=== PATIENT | male | born 1945 | race Caucasian/White ===

== ENCOUNTER 2019-06-14 23:46 | Inpatient (IN) | payer MEDICARE ==
[2019-06-14 23:57] LABS: Glucose,Whole Blood 171 mg/dL (75-99)
[2019-06-15] MEDS ORDERED: SODIUM CHLORIDE 0.9% 1,000 ML IV STA (00:07)
[2019-06-15 00:26] LABS: Basophils # (A) 0.1 k/uL (0-0.2); Basophils % (A) 1 %; Eosinophils # (A) 0.1 k/uL (0-0.7); Eosinophils % (A) 2 %; HCT 41.3 % (39.0-53.0); HGB 14.2 gm/dL (13.0-17.5); Lymphocytes # (A) 2.3 k/uL (1.0-4.8); Lymphocytes % (A) 32 %; MCH 31.5 pg (25.0-35.0); MCHC 34.3 g/dL (31.0-37.0); MCV 91.8 fL (80.0-100.0); Mean Platelet Volume 7.7; Monocytes # (A) 0.4 k/uL (0-1.0); Monocytes % (A) 6 %; Neutrophils # (A) 4.2 k/uL (1.3-7.7); Neutrophils % (A) 57 %; Platelet Count 285 k/uL (150-450); RDW 12.2 % (11.5-15.5); WBC 7.2 k/uL (3.8-10.6)
--- NOTE | 2019-06-15 00:39 | CT ---
EXAMINATION TYPE: CT brain wo con for TPA DATE OF EXAM: 06/15/2019 COMPARISON: None HISTORY: stroke CT DLP: 1098.40 mGycm Automated exposure control for dose reduction was used. Multiple axial sections were obtained of the brain without contrast. Ventricles and sulci appear normal for age. There is no mass effect nor midline shift. There is no si gn of intracranial hemorrhage. Calvarium is intact. There is no evidence of cerebral edema. IMPRESSION: Negative CT scan of the brain.
--- NOTE | 2019-06-15 00:40 | XR ---
EXAMINATION TYPE: XR chest 2V DATE OF EXAM: 06/15/2019 COMPARISON: 01/29/2016 HISTORY: Altered mental status. TECHNIQUE: FINDINGS: Heart is normal. Lungs are clear. There is no heart failure. There is no pleural effusion. Thoracic aorta shows mild atheromatous change. There are chest leads. IMPRESSION: No active cardiopulmonary disease. Normal heart. No change.
[2019-06-15 00:42] LABS: ALT 36 U/L (4-49); African American GFR (CKD) >90 (>60 ml/min/1.73 sqM); Albumin 4.6 g/dL (3.5-5.0); Anion Gap 8 mmol/L; Blood Urea Nitrogen 18 mg/dL (9-20); Calcium 9.9 mg/dL (8.4-10.2); Carbon Dioxide 27 mmol/L (22-30); Chloride 101 mmol/L (98-107); Glucose 137 mg/dL (74-99); Non-African American GFR(CKD) >90 (>60 ml/min/1.73 sqM); Sodium 136 mmol/L (137-145); Total Bilirubin 0.7 mg/dL (0.2-1.3); Total Protein 7.6 g/dL (6.3-8.2)
[2019-06-15 00:53] LABS: Potassium 4.7 mmol/L (3.5-5.1)
[2019-06-15 00:54] LABS: AST 39 U/L (17-59); Alkaline Phosphatase 65 U/L (38-126)
[2019-06-15 00:55] LABS: Partial Thromboplastin Time 22.1 sec (22.0-30.0); Prothrombin Time 10.1 sec (9.0-12.0)
[2019-06-15 01:45] LABS: Appearance,Urine Clear (Clear); Bilirubin,Urine Negative (Negative); Blood,Urine Negative (Negative); Color,Urine Light Yellow; Glucose,Urine (UA) Negative (Negative); Ketones,Urine Negative (Negative); Leukocyte Esterase,Urine Negative (Negative); Nitrite,Urine Negative (Negative); PH, Urine 6.5 (5.0-8.0); Protein,Urine Negative (Negative); Specific Gravity,Urine 1.006 (1.001-1.035); Urobilinogen,Urine <2.0 mg/dL (<2.0)
[2019-06-15] MEDS ORDERED: ASPIRIN 81 MG PO STA (02:17)
[2019-06-15] MEDS ORDERED: NALOXONE 0.4 MG/ML 1 ML VIAL IV PRN (02:27)
--- NOTE | 2019-06-15 02:38 | ED ---
General Adult HPI - General Chief complaint: Neuro Symptoms/Deficit Stated complaint: Dizzy,CVA Symptoms Time Seen by Provider: 06/15/19 00:07 Source: patient, family Mode of arrival: wheelchair Limitations: altered mental status - History of Present Illness Initial comments: Prasanna is a pleasant 74-year-old woman who is brought in by his and son f or evaluation of altered mental status, odd speech and intermittent possible left-sided facial droop though seems resolved at arrival and possible slurred speech versus mumbling speech. Family reports that the patient is usually very sharp mentally, and this evening he seems very confused. Upon arrival he stated that it was 2012 and he is speaking about events that had not happened in a number of years. He began talking about being stung by bees and when asked where this happened patient reported that happened in April. Family has no clue what the patient is talking about. Family felt like possibly the patient had a facial droop though that had resolved. Also patient has been having moments of complete clarity where he seems awake alert aware of the year time uncertain barnes at the hospital. He's not been sick. - Related Data Home Medications Medication Instructions Recorded Confirmed Aspirin 81 mg PO DAILY 01/29/16 06/15/19 Atorvastatin [Lipitor] 20 mg PO DAILY 01/29/16 06/15/19 Lisinopril [Zestril] 20 mg PO DAILY 01/29/16 06/15/19 amLODIPine [Norvasc] 5 mg PO DAILY 01/29/16 06/15/19 Previous Rx's Medication Instructions Recorded Ibuprofen [Motrin] 800 mg PO Q6HR PRN #20 tab 01/29/16 Allergies Allergy/AdvReac Type Severity Reaction Status Date / Time chlordiazepoxide Allergy Rash/Hives Verified 06/15/19 00:05 [From Librax (with clidinium)] clidinium bromide Allergy Rash/Hives Verified 06/15/19 00:05 [From Librax (with clidinium)] Review of Systems ROS Statement: Those systems with pertinent positive or pertinent negative responses have been documented in the HPI. ROS Other: All systems not noted in ROS Statement are negative. Past Medical History Past Medical History: Hyperlipidemia, Hypertension Additional Past Medical History / Comment(s): heart murmur History of Any Multi-Drug Resistant Organisms: None Reported Past Surgical History: No Surgical Hx Reported Additional Past Surgical History / Comment(s): eye implants Past Psychological History: No Psychological Hx Reported Smoking Status: Never smoker Past Alcohol Use History: Occasional Past Drug Use History: None Reported - Past Family History Mother Family Medical History: No Reported History General Exam - General Exam Comments Initial Comments: Physical Exam GENERAL: Patient is well-developed and well-nourished. Patient is nontoxic and well- hydrated and is in no distress. HENT: Normocephalic, Atraumatic. EYES: PERRL, EOMI PULMONARY: Unlabored respirations. No audible rales rhonchi or wheezing was noted. CARDIOVASCULAR: There is a regular rate and rhythm without any murmurs gallops or rubs. ABDOMEN: Soft and nontender with normal bowel sounds. SKIN: Skin is clear with no lesions or rashes and otherwise unremarkable. : Deferred NEUROLOGIC: Patient is alert and oriented to person and place, occasionally oriented to year occasionally confused Radial nerves II through XII is intact No obvious facial droop, no slurred speech Moving all extremities spontaneously Standing without difficulty, no altered coordination No weakness in upper or lower extremities, no droop MUSCULOSKELETAL: Normal extremities with adequate strength and full range of motion. No lower extremity swelling or edema. No calf tenderness. PSYCHIATRIC: Normal psychiatric evaluation. Limitations: altered mental status Course Vital Signs 06/15/19 06/15/19 06/15/19 00:01 00:35 01:45 Temperature 97.9 F Pulse Rate 47 L 46 L 46 L Pulse Rate [ Right] Respiratory 18 17 18 Rate Blood Pressure 178/87 174/69 170/71 Blood Pressure [Right Arm] O2 Sat by Pulse 99 100 100 Oximetry 06/15/19 06/15/19 03:00 03:34 Temperature 98.7 F 97.1 F L Pulse Rate 52 L Pulse Rate [ 48 L Right] Respiratory 18 16 Rate Blood Pressure 165/72 Blood Pressure 179/78 [Right Arm] O2 Sat by Pulse 100 95 Oximetry EKG Findings - EKG Comments: EKG Findings:: EKG was obtained due to complaint of possible neuro deficits, EKG was obtained at 2356, rate is 50 rhythm is narrow complex regular rhythm with a P-wave before each QRS consistent with sinus bradycardia, there is a prolonged NV at 212, QRS is 94, QTC is [address] elevations or depressions there is no evidence of acute ischemia or infarction. Medical Decision Making - Medical Decision Making The patient was seen and evaluated, history is obtained from the patient and family at bedside Patient no acute complaints however family is concerned about his confusion. Reports that he's been speaking nonsense. Only does report they feel that he has intermittent left-sided facial droop and intermittent slurred speech but that they have resolved on arrival Labs and imaging were obtained and imaging reveals no acute pathology, labs with no significant abnormalities no infection noted to the cause of altered mental status. Upon my reevaluation the patient is now awake alert and oriented. However family can reports he's had these periods of telling stories being confused about his location. This is very atypical for the patient. At this time we'll plan to admit the patient for evaluation by neurology. - Lab Data Result diagrams: 06/15/19 00:06 06/15/19 00:06 Lab Results 06/14/19 06/15/19 06/15/19 Range/Units 23:56 00:06 00:06 WBC 7.2 (3.8-10.6) k/uL RBC 4.50 (4.30-5.90) m/uL Hgb 14.2 (13.0-17.5) gm/dL Hct 41.3 (39.0-53.0) % MCV 91.8 (80.0-100.0) fL MCH 31.5 (25.0-35.0) pg MCHC 34.3 (31.0-37.0) g/dL RDW 12.2 (11.5-15.5) % Plt Count 285 (150-450) k/uL Neutrophils % 57 % Lymphocytes % 32 % Monocytes % 6 % Eosinophils % 2 % Basophils % 1 % Neutrophils # 4.2 (1.3-7.7) k/uL Lymphocytes # 2.3 (1.0-4.8) k/uL Monocytes # 0.4 (0-1.0) k/uL Eosinophils # 0.1 (0-0.7) k/uL Basophils # 0.1 (0-0.2) k/uL PT (9.0-12.0) sec INR (<1.2) APTT (22.0-30.0) sec Sodium 136 L (137-145) mmol/L Potassium 4.7 (3.5-5.1) mmol/L Chloride 101 (98-107) mmol/L Carbon Dioxide 27 (22-30) mmol/L Anion Gap 8 mmol/L BUN 18 (9-20) mg/dL Creatinine 0.70 (0.66-1.25) mg/dL Est GFR (CKD-EPI)AfAm >90 (>60 ml/min/1.73 sqM) Est GFR (CKD-EPI)NonAf >90 (>60 ml/min/1.73 sqM) Glucose 137 H (74-99) mg/dL POC Glucose (mg/dL) 171 H (75-99) mg/dL POC Glu Analysis Mgr ID Keren Donohue Calcium 9.9 (8.4-10.2) mg/dL Total Bilirubin 0.7 (0.2-1.3) mg/dL AST 39 (17-59) U/L ALT 36 (4-49) U/L Alkaline Phosphatase 65 (38-126) U/L Troponin I (0.000-0.034) ng/mL Total Protein 7.6 (6.3-8.2) g/dL Albumin 4.6 (3.5-5.0) g/dL Urine Color Urine Appearance (Clear) Urine pH (5.0-8.0) Ur Specific [place] (1.001-1.035) Urine Protein (Negative) Urine Glucose (UA) (Negative) Urine Ketones (Negative) Urine Blood (Negative) Urine Nitrite (Negative) Urine Bilirubin (Negative) Urine Urobilinogen (<2.0) mg/dL Ur Leukocyte Esterase (Negative) 06/15/19 06/15/19 06/15/19 Range/Units 00:06 00:06 01:21 WBC (3.8-10.6) k/uL RBC (4.30-5.90) m/uL Hgb (13.0-17.5) gm/dL Hct (39.0-53.0) % MCV (80.0-100.0) fL MCH (25.0-35.0) pg MCHC (31.0-37.0) g/dL RDW (11.5-15.5) % Plt Count (150-450) k/uL Neutrophils % % Lymphocytes % % Monocytes % % Eosinophils % % Basophils % % Neutrophils # (1.3-7.7) k/uL Lymphocytes # (1.0-4.8) k/uL Monocytes # (0-1.0) k/uL Eosinophils # (0-0.7) k/uL Basophils # (0-0.2) k/uL PT 10.1 (9.0-12.0) sec INR 1.0 (<1.2) APTT 22.1 (22.0-30.0) sec Sodium (137-145) mmol/L Potassium (3.5-5.1) mmol/L Chloride (98-107) mmol/L Carbon Dioxide (22-30) mmol/L Anion Gap mmol/L BUN (9-20) mg/dL Creatinine (0.66-1.25) mg/dL Est GFR (CKD-EPI)AfAm (>60 ml/min/1.73 sqM) Est GFR (CKD-EPI)NonAf (>60 ml/min/1.73 sqM) Glucose (74-99) mg/dL POC Glucose (mg/dL) (75-99) mg/dL POC Glu Analysis Mgr ID Calcium (8.4-10.2) mg/dL Total Bilirubin (0.2-1.3) mg/dL AST (17-59) U/L ALT (4-49) U/L Alkaline Phosphatase (38-126) U/L Troponin I 0.016 (0.000-0.034) ng/mL Total Protein (6.3-8.2) g/dL Albumin (3.5-5.0) g/dL Urine Color Light Yellow Urine Appearance Clear (Clear) Urine pH 6.5 (5.0-8.0) Ur Specific [place] 1.006 (1.001-1.035) Urine Protein Negative (Negative) Urine Glucose (UA) Negative (Negative) Urine Ketones Negative (Negative) Urine Blood Negative (Negative) Urine Nitrite Negative (Negative) Urine Bilirubin Negative (Negative) Urine Urobilinogen <2.0 (<2.0) mg/dL Ur Leukocyte Esterase Negative (Negative) Disposition Clinical Impression: Altered mental status Disposition: ADMITTED IP TO THIS [facility] Condition: Stable Is patient prescribed a controlled substance at d/c from ED?: No
[2019-06-15 03:00] LABS: Carbon Monoxide 1.6 % (<10.0); VBG PH 7.33 (7.31-7.41)
[2019-06-15] MEDS ORDERED: ZOLPIDEM 5 MG TAB PO PRN (13:29)
--- NOTE | 2019-06-15 14:56 | P.CNNES ---
History of Present Illness Consult date: 06/15/19 Reason for Consult: slurred speech Chief complaint: confusion and slurred speech History of Present Illness: Mr. Prasanna Pop is a 74-year-old male who is seen in neurologic consultation on June 15, 2019 via teleneurology. The patient himself was unable to tell me why he is in the hospital. He tells me "my count wasn't good". The patient's son is at the bedside and he reports that his father was confused and slurring his speech, yesterday. The patient's son wondered about carbon monoxide poisoning because apparently one of the pets at home was sick. The patient lives with his . He usually is mentally sharp. The patient reportedly had no difficulty with balance or headache. He did complain of feeling as if his eyes were sore. There is no definitive loss of vision. Per the patient's son, the patient had slurred speech and drooping of his right lower lip. The patient denies difficulty swallowing. There was no chest pain or shortness of breath. The patient has no history of similar events. Review of Systems Negative except for that noted in the history of chief complaint Past Medical History Past Medical History: Hyperlipidemia, Hypertension Additional Past Medical History / Comment(s): heart murmur History of Any Multi-Drug Resistant Organisms: None Reported Past Surgical History: No Surgical Hx Reported Additional Past Surgical History / Comment(s): eye implants Past Anesthesia/Blood Transfusion Reactions: No Reported Reaction Past Psychological History: No Psychological Hx Reported Smoking Status: Never smoker Past Alcohol Use History: Occasional Past Drug Use History: None Reported - Past Family History Mother Family Medical History: No Reported History Medications and Allergies Home Medications Medication Instructions Recorded Confirmed Type Aspirin 81 mg PO DAILY 01/29/16 06/15/19 History Atorvastatin [Lipitor] 20 mg PO HS 01/29/16 06/15/19 History Ibuprofen [Motrin] 800 mg PO Q6HR PRN #20 tab 01/29/16 06/15/19 Rx amLODIPine [Norvasc] 5 mg PO HS 01/29/16 06/15/19 History Lansoprazole 30 mg PO DAILY 06/15/19 06/15/19 History Lisinopril [Zestril] 20 mg PO DAILY 06/15/19 06/15/19 History Prednisolone Acetate/Pf 1 drop BOTH EYES COSTA 06/15/19 06/15/19 History [Prednisolone Acet 1% Eye Drop] Zolpidem [Ambien] 5 mg PO HS PRN 06/15/19 06/15/19 History Allergies Allergy/AdvReac Type Severity Reaction Status Date / Time chlordiazepoxide Allergy Rash/Hives Verified 06/15/19 09:11 [From Librax (with clidinium)] clidinium bromide Allergy Rash/Hives Verified 06/15/19 09:11 [From Librax (with clidinium)] Physical Examination - Vital Signs Vital Signs: Vital Signs Temp Pulse Pulse Resp BP BP Pulse Ox 06/15/19 11:41 97.3 F L 48 L 17 140/65 97 06/15/19 03:34 97.1 F L 48 L 16 179/78 95 06/15/19 03:00 98.7 F 52 L 18 165/72 100 06/15/19 01:45 46 L 18 170/71 100 06/15/19 00:35 46 L 17 174/69 100 06/15/19 00:01 97.9 F 47 L 18 178/87 99 Intake and Output 06/14/19 06/15/19 06/15/19 22:59 06:59 14:59 Other: Voiding Method Toilet Urinal # Voids 1 Weight 78.018 kg Gen.: The patient is reclining in the bed. He is well-nourished, well-developed and in no acute distress. HEENT: Head is atraumatic, normocephalic. Fundus not visualized. There is no scleral icterus. This membranes are moist. Heart: Regular rate and rhythm Extremities: Without edema Neurological examination Mental status: Patient is awake, alert and oriented 3. He is unable to report any recent events. His speech is slightly slurred. Cranial nerves: Pupils are equal, round and reactive to light. Visual grissom are full to confrontation. Extraocular muscles are intact. Facial sensation is intact. There is flattening of the right nasal labial fold. Hearing is grossly intact. Uvula and palate are midline. Shoulder shrug is symmetric. Tongue protrudes midline. Motor: Strength is 5/5 throughout Sensation: Grossly intact to light touch Coordination: Finger to nose testing is intact. There is a tremor of the bilateral upper extremities which is present with movement. Deep tendon reflexes: 2+/4+ in the upper extremities. 2-3+/4+ at the knees. Gait: Not assessed Results - Laboratory Findings CBC and BMP: 06/15/19 00:06 06/15/19 00:06 Abnormal Lab Findings: Abnormal Labs 06/14/19 06/15/19 06/15/19 23:56 00:06 02:49 VBG pCO2 58 H VBG HCO3 29 H Sodium 136 L Glucose 137 H POC Glucose (mg/dL) 171 H - Diagnostic Findings Comments: CT brain images are reviewed. There is a possible area of decreased attenuation in the left MCA territory. Assessment and Plan Assessment: Impressions: 1. Possible left lacunar infarct, in the middle cerebral artery territory 2. Bradycardia Plan: 1. MRI of brain 2. Consider cardiology consultation for bradycardia and possible pacemaker 3. Speech therapy evaluation regarding slurred speech and confusion Time with Patient: Greater than 30 (spent 45 minutes with patient)
--- NOTE | 2019-06-15 16:00 | MR ---
EXAMINATION TYPE: MR brain wo con DATE OF EXAM: 06/15/2019 COMPARISON: None HISTORY: AMS, left lunar infarct Multiplanar multiecho imaging of the brain was performed without contrast. On the diffusion images there is 15 x 10 mm focus of increased signal in the anterior left thalamus. This is consistent with acute infarct. There is no mass effect nor midline shift. There is no sign of intracranial hemorrhage. Ventricles are prominent. There is mild thinning of the corpus callosum. Se lla turcica appears normal. There is mild cerebral cortical atrophy. The brainstem appears normal. On the T2 and FLAIR images there are scattered white matter foci of increased signal at the baumann-whit e matter junction of both cerebral hemispheres. These measure up to 4 mm. Total number is approximate ly 10. I see no evidence of cortical infarct. IMPRESSION: Acute infarct anterior left thalamus. Scattered small white matter high signal foci probably related to some chronic microvascular ischemia . No evidence of cortical infarct.
[2019-06-15 16:58] LABS: Glucose,Whole Blood 136 mg/dL (75-99)
[2019-06-15 17:14] VITALS: RESP 16
[2019-06-15] MEDS ORDERED: RX INFO: IV CONTRAST WAS GIVEN 1 EACH MISC MISCELLANE PRN (17:18)
--- NOTE | 2019-06-15 17:38 | CT ---
EXAMINATION TYPE: CT brain wo con for TPA DATE OF EXAM: 06/15/2019 COMPARISON: Today HISTORY: Altered mental status. CT DLP: 1042.7 mGycm Automated exposure control for dose reduction was used. Multiple axial sections were obtained of the brain without contrast. There is poorly marginated 2 cm area of hypodensity involving the anterior left thalamus consistent w ith an acute infarct. There is no midline shift. There is no sign of intracranial hemorrhage. The alanis varium is intact. IMPRESSION: Thalamic left side anterior hypodensity consistent with an acute infarct that is a radiographic arriaga e compared to exam this morning. No hemorrhage.
--- NOTE | 2019-06-15 17:51 | P.HPIM ---
History of Present Illness H&P Date: 06/15/19 Presenting complaint: Confused Speech History of presenting complaint: This is a pleasant 74-year-old gentleman of Dr. Chino. History is obtained by the at the bedside. Has a history of hypertension, hyperlipidemia. In good health. Patient had gone up as his history for breakfast and feeling well. He threw up at the restaurant. A moment to sleep. Woke up in the evening around 4:00 his speech was all gibberish. Also mouth was drooping to one side. Assessment and decided to call family and then decided to come down to the ER. Accordingly are closed with diet. A computed tomography scan of the brain did not show an acute stroke. She was admitted for the same. We have r obotic coverage of neurology and ordered a MRI earlier today. Came to see the patient .: For the MRI. Later MRI results come back showing infarct in the left thalamus. Patient is already on aspirin and Lipitor. Patient's speech is shown some improvement.. No double vision or headache. No trouble walking. No trouble eating. Review of systems: GEN.: None EYES: None HEENT: None NECK: None RESPIRATORY: None CARDIOVASCULAR: None GASTROINTESTINAL: None GENITOURINARY: None MUSCULOSKELETAL: None LYMPHATICS: None HEMATOLOGICAL: None PSYCHIATRY: None NEUROLOGICAL: As above Past medical history to include: Hyperlipidemia, hypertension, Social history: . Does not smoke. Alcohol occasionally. Is at [facility] Family history: Reviewed, noncontributory to presentation Physical examination: VITAL SIGNS: 97.9, 47, 18, 178/87, 99% room air GENERAL: Average built, laying, comfortable. EYES: Pupils equal. Conjunctiva normal. HEENT: External appearance of nose and ears normal, oral cavity grossly normal. NECK: JVD not raised; masses not palpable. HEART: First and second heart sounds are normal; no edema. LUNGS: Respiratory rate normal; clear to auscultation. ABDOMEN: Soft, nontender, liver spleen not palpable, no masses palpable. PSYCH: [Immunosuppression questions. NEUROLOGICAL: Mild facial limits asymmetry with slight weakness on the left side of the face, speech is altered t. LYMPHATICS: No lymph nodes palpable in the axilla and neck INVESTIGATIONS, reviewed in the clinical context:: White count 7.2 hemoglobin 14.2 platelets 25 potassium 4.7 bun 18 [address] 0[address] brain without contrast for TPA negative computed tomography scan brain MRI brain-acute infarct anterior left thalamus Assessment: -Acute anterior thalamus infarct, and a right-handed patient, likely ischemic -Essential hypertension, elevated in the acute phase of a stroke -Hyperlipidemia -Acute dysarthria, secondary to acute stroke Plan: Nephrology was consulted earlier. Seen by them. Patient oriented aspirin and Lipitor. Increase the dose of the latter by 80 mg. Also add Plavix 75 mg a day for 30 days. The patient be consulted. No trouble swallowing. Care was discussed in detail with the patient and at the bedside and questions ans wered. Lovenox for DVT prophylaxis. Past Medical History Past Medical History: Hyperlipidemia, Hypertension Additional Past Medical History / Comment(s): heart murmur History of Any Multi-Drug Resistant Organisms: None Reported Past Surgical History: No Surgical Hx Reported Additional Past Surgical History / Comment(s): eye implants Past Anesthesia/Blood Transfusion Reactions: No Reported Reaction Past Psychological History: No Psychological Hx Reported Smoking Status: Never smoker Past Alcohol Use History: Occasional Past Drug Use History: None Reported - Past Family History Mother Family Medical History: No Reported History Medications and Allergies Home Medications Medication Instructions Recorded Confirmed Type Aspirin 81 mg PO DAILY 01/29/16 06/15/19 History Atorvastatin [Lipitor] 20 mg PO HS 01/29/16 06/15/19 History Ibuprofen [Motrin] 800 mg PO Q6HR PRN #20 tab 01/29/16 06/15/19 Rx amLODIPine [Norvasc] 5 mg PO HS 01/29/16 06/15/19 History Lansoprazole 30 mg PO DAILY 06/15/19 06/15/19 History Lisinopril [Zestril] 20 mg PO DAILY 06/15/19 06/15/19 History Prednisolone Acetate/Pf 1 drop BOTH EYES COSTA 06/15/19 06/15/19 History [Prednisolone Acet 1% Eye Drop] Zolpidem [Ambien] 5 mg PO HS PRN 06/15/19 06/15/19 History Allergies Allergy/AdvReac Type Severity Reaction Status Date / Time chlordiazepoxide Allergy Rash/Hives Verified 06/15/19 09:11 [From Librax (with clidinium)] clidinium bromide Allergy Rash/Hives Verified 06/15/19 09:11 [From Librax (with clidinium)] Physical Exam Vitals: Vital Signs Temp Pulse Pulse Resp BP BP Pulse Ox 06/15/19 11:41 97.3 F L 48 L 17 140/65 97 06/15/19 03:34 97.1 F L 48 L 16 179/78 95 06/15/19 03:00 98.7 F 52 L 18 165/72 100 06/15/19 01:45 46 L 18 170/71 100 06/15/19 00:35 46 L 17 174/69 100 06/15/19 00:01 97.9 F 47 L 18 178/87 99 Intake and Output 06/14/19 06/15/19 06/15/19 22:59 06:59 14:59 Other: Voiding Method Toilet Urinal # Voids 1 Weight 78.018 kg Results CBC & Chem 7: 06/15/19 00:06 06/15/19 00:06 Labs: Abnormal Lab Results - Last 24 Hours (Table) 06/14/19 06/15/19 06/15/19 Range/Units 23:56 00:06 02:49 VBG pCO2 58 H (37-51) mmHg VBG HCO3 29 H (24-28) mmol/L Sodium 136 L (137-145) mmol/L Glucose 137 H (74-99) mg/dL POC Glucose (mg/dL) 171 H (75-99) mg/dL Thrombosis Risk Factor Assmnt - Choose All That Apply Any of the Below Risk Factors Present?: Yes Each Factor Represents 1 point: Obesity (BMI >25) Each Risk Factor Represents 3 Points: Age 75 years or older Thrombosis Risk Factor Assessment Total Risk Factor Score: 4 Thrombosis Risk Factor Assessment Level: Moderate Risk
[2019-06-15 18:11] LABS: Cholesterol 174 mg/dL (<200); HDL Cholesterol 42 mg/dL (40-60); LDL Cholesterol,Calculated 105 mg/dL (0-99); Triglycerides 133 mg/dL (<150)
--- NOTE | 2019-06-15 18:16 | CT ---
EXAMINATION TYPE: CT angio head neck DATE OF EXAM: 06/15/2019 COMPARISON: HISTORY: Altered mental status. CT DLP: 360.6 mGycm Automated exposure control for dose reduction was used. CONTRAST: Performed with IV Contrast, patient injected with 65ml mL of Isovue 370. There are 3-D post processed images. Exam was performed from the thoracic aortic arch to the vertex o f the brain. There is normal branching pattern of the great vessels on the aortic arch. There is bilateral arteria l flow in the subclavian arteries. There is arterial flow in the common internal and external carotid arteries bilaterally. There is no evidence of carotid or vertebral artery aneurysm or dissection. Th ere is bilateral arterial flow in the vertebral arteries. There is some plaque formation at the carot id artery bifurcations and lumen narrowing of approximately 50% on the left side at the origin of the left internal carotid artery. Lumen narrowing is estimated 35% at the origin of the right internal c arotid artery. There is arterial flow in the vertebrobasilar artery system. There is arterial flow in the anterior middle and posterior cerebral arteries. There is normal contra st opacification of the venous sinuses. There is no evidence of intracranial aneurysm or neovasculari ty. There is no mass effect. I see no evidence of hemodynamic stenosis. There is no evidence of cereb ral edema. IMPRESSION: There is atherosclerotic plaque and stenosis in the proximal internal carotid arteries as above. No e vidence of hemodynamic stenosis. No intracranial angiographic abnormality.
[2019-06-15] MEDS: LISINOPRIL 20 MG TAB PO SCH (18:30)
[2019-06-15] MEDS: CLOPIDOGREL 75 MG TAB PO SCH (18:30)
[2019-06-15] MEDS: ENOXAPARIN 40 MG/0.4 ML SYRINGE SQ SCH (18:31)
[2019-06-15] MEDS: ASPIRIN 81 MG PO SCH (18:32)
[2019-06-15] MEDS ORDERED: ATORVASTATIN 20 MG TAB PO SCH (21:00)
[2019-06-15] MEDS ORDERED: ATORVASTATIN 80 MG TAB PO SCH (21:00)
[2019-06-15] MEDS ORDERED: amLODIPine 5 MG TAB PO SCH (21:00)
[2019-06-16] MEDS ORDERED: PANTOPRAZOLE 40 MG TABLET PO SCH (07:30)
[2019-06-16] MEDS: ASPIRIN 81 MG PO SCH (08:07)
[2019-06-16] MEDS: CLOPIDOGREL 75 MG TAB PO SCH (08:07)
[2019-06-16] MEDS: LISINOPRIL 20 MG TAB PO SCH (08:07)
[2019-06-16] MEDS: ENOXAPARIN 40 MG/0.4 ML SYRINGE SQ SCH (08:07)
[2019-06-16 08:11] VITALS: TEMP 96.4
[2019-06-16] MEDS ORDERED: prednisoLONE ACETATE 1% OPHTH DROPS 5 ML BTL BOTH EYES SCH (09:00)
[2019-06-16 14:57] VITALS: BP 130/63; PULSE 52
--- NOTE | 2019-06-16 17:21 | P.PN ---
Subjective Progress Note Date: 06/16/19 The patient is seen in neurologic follow-up via teleneurology. I received a call yesterday afternoon regarding MRI report. Apparently a code stroke was called at the time this report became available. In reviewing the records it appears that a CT angiogram was not done when the patient presented to the emergency department. CT scan of the brain was read as negative for acute infarct. After receiving the phone call, I okayed a CT angiogram. Family is present at the bedside with the patient today. The patient reports that he is having no difficulty with his speech, confusion or ambulation. The p christopher's family disagrees. The family reports that the patient has episodes of speaking about topics that are not being discussed at that time. He suddenly will begin talking about something that makes no sense. This is not occurring 100% of the time. The family reports that this patient is very sharp, very intelligent and that these episodes of confusion are very unlike him. They're concerned. Family is also concerned about the patient's bradycardia and low O2 sat. They wonder if this is the cause for his confusion. The patient's feels that her is still having difficulty with ambulation and balance. MRI report is discussed with the patient and family. CT angiogram results are discussed as well. Objective - Vital Signs Vital signs: Vital Signs Temp 96.4 F L 06/16/19 08:10 Pulse 52 L 06/16/19 14:52 Resp 16 06/16/19 14:52 BP 130/63 06/16/19 14:52 Pulse Ox 92 L 06/16/19 14:52 Intake & Output 06/15/19 06/16/19 06/16/19 18:59 06:59 18:59 Intake Total 240 345 Output Total 200 Balance 40 345 Intake: Oral 240 345 Output: Urine 200 Other: Voiding Method Toilet Toilet Toilet Urinal Urinal Urinal - Exam Gen.: The patient is seated in the bedside chair. He is in no acute distress. HEENT: Head is atraumatic, normocephalic. Fundus not visualized. There is no scleral icterus. Mucous membranes are moist. Heart: Regular rate and rhythm with murmur Neurological examination Mental status: Patient is awake, alert and oriented 3. He is able to repeat phrases. Cranial nerves: Pupils are equal, round and reactive to light. Visual grissom are full to confrontation. Extraocular muscles are intact. Facial sensations intact. There is mild flattening of the right nasal labial fold. Hearing is gr ossly intact. There is diminished right shoulder shrug. Tongue protrudes midline. Motor: Strength in the bilateral upper extremities is 5/5. Lower extremity strength 4/5. - Labs CBC & Chem 7: 06/15/19 00:06 06/15/19 00:06 Labs: Abnormal Lab Results - Last 24 Hours (Table) 06/15/19 06/15/19 Range/Units 00:12 16:57 POC Glucose (mg/dL) 136 H (75-99) mg/dL LDL Cholesterol, Calc 105 H (0-99) mg/dL Assessment and Plan Assessment: Impressions: 1. Acute left thalamic infarct 2. Reported continued confusion 3. Bradycardia Plan: Plan: 1. Would recommend cardiology follow-up for bradycardia 2. Check labs for possible cause for encephalopathy Time with Patient: Greater than 30 (spent 35 minutes with patient)
--- NOTE | 2019-06-16 22:32 | P.DS ---
Providers Date of admission: 06/16/19 14:27 Expected date of discharge: 06/16/19 (Patient transferred) Attending physician: Nicholas Barrientos Consults: 06/15/19 02:36 Consult Physician Urgent Consulting Provider: Kaycee Greenfield Consult Reason/Comments: altered, occasional slurred speech Do you want consulting provider notified?: Yes 06/15/19 20:06 Consult Physician Routine Consulting Provider: Harish Agarwal Consult Reason/Comments: Bradycardia Do you want consulting provider notified?: Yes Primary care physician: Dilan Chino [facility] Course: Presenting complaint: Confused Speech Hospital course: This is a pleasant 74-year-old gentleman of Dr. Chino. History is obtained by the at the bedside. Has a history of hypertension, hyperlipidemia. In good health. Patient had gone up as his for breakfast and feeling well. He threw up at the restaurant. Returned home and went to sleep. Woke up in the evening around 4:00 his speech was all gibberish. Also mouth was drooping to one side. decided to call family and then decided to come down to the ER. . A computed tomography scan of the brain did not show an acute stroke. admitted for the same. We have robotic coverage of neurology and ordered a MRI . MRI results-acute infarct in the left thalamus. Patient is already on aspirin and Lipitor. No double vision or headache. No trouble walking. No trouble eating. Patient's heart rate at baseline was around 60. He'll be running high 40s to 50s. Here. Today-speech at least somewhat improved. Per the focal signs. Patient was continued to talk about things not making sense. Family reports she is talking about things that don't make any sense. Had a long discussion with patient several family members. Given that neurology services not available here they wanted to high level of care. I did speak to the accepting physician at [facility]. And patient been accepted to the neurology service. This was conveyed to the patient's family. Discussion and discharge planning more than 35 minutes Consultations: Dr. Greenfield from robotic neurology service Dr. Arminda Agarwal from cardiology Physical examination: VITAL SIGNS: 96.4-52-16-130 was 3-92% on room air GENERAL: Laying in bed, comfortable EYES: Pupils equal. Conjunctiva normal. HEENT: External appearance of nose and ears normal, oral cavity grossly normal. NECK: JVD not raised; masses not palpable. HEART: First and second heart sounds are normal; no edema. LUNGS: Respiratory rate normal; clear to auscultation. ABDOMEN: Soft, nontender, liver spleen not palpable, no masses palpable. PSYCH: Able to answer simple questions NEUROLOGICAL: Mild facial limits asymmetry with slight weakness on the left side of the face, speech is a bit slow-improved INVESTIGATIONS, reviewed in the clinical context:: White count 7.2 hemoglobin 14.2 platelets 25 potassium 4.7 bun 18 creatinine 0.[address] brain without contrast for TPA negative computed tomography scan brain MRI brain-acute infarct anterior left thalamus Computed tomography scan angio brain-no significant carotid stenosis EKG tracing-sinus rhythm and nonspecific ST segment changes Assessment: -Acute anterior thalamus infarct, and a right-handed patient, likely ischemic -Essential hypertension, elevated in the acute phase of a stroke, now coming down -Hyperlipidemia -Acute dysarthria, secondary to acute stroke Disposition: Neurology service at [facility]-for high level of care. We do not have in-house neurology service. Family requesting the same. Plan - Discharge Summary New Discharge Prescriptions: New Atorvastatin [Lipitor] 80 mg PO HS tab Enoxaparin [Lovenox] 40 mg SQ DAILY syringe Clopidogrel [Plavix] 75 mg PO DAILY tab Continue amLODIPine [Norvasc] 5 mg PO HS Aspirin 81 mg PO DAILY Zolpidem [Ambien] 5 mg PO HS PRN PRN Reason: Insomnia Prednisolone Acetate/Pf [Prednisolone Acet 1% Eye Drop] 1 drop BOTH EYES COSTA Lisinopril [Zestril] 20 mg PO DAILY Lansoprazole 30 mg PO DAILY Discontinued Atorvastatin [Lipitor] 20 mg PO HS Ibuprofen [Motrin] 800 mg PO Q6HR PRN #20 tab PRN Reason: Pain Discharge Medication List Aspirin 81 mg PO DAILY 01/29/16 [History] amLODIPine [Norvasc] 5 mg PO HS 01/29/16 [History] Lansoprazole 30 mg PO DAILY 06/15/19 [History] Lisinopril [Zestril] 20 mg PO DAILY 06/15/19 [History] Prednisolone Acetate/Pf [Prednisolone Acet 1% Eye Drop] 1 drop BOTH EYES COSTA 06/15/19 [History] Zolpidem [Ambien] 5 mg PO HS PRN 06/15/19 [History] Atorvastatin [Lipitor] 80 mg PO HS tab 06/16/19 [Rx] Clopidogrel [Plavix] 75 mg PO DAILY tab 06/16/19 [Rx] Enoxaparin [Lovenox] 40 mg SQ DAILY syringe 06/16/19 [Rx] Follow up Appointment(s)/Referral(s): Trevon Chino MD [Primary Care Provider] - 1-2 days Discharge Disposition: OTHER INSTITUTION NOT DEFINED
--- NOTE | 2019-06-16 22:40 | CONS ---
CONSULTATION CHIEF COMPLAINT: CVA HISTORY OF PRESENT ILLNESS: Prasanna is a 74-year-old gentleman with history of hypertension and dyslipidemia who is admitted to hospital with CVA. The patient presented with slurred speech. The patient presented with slurred speech, apparently had a robot evaluation for his stroke and I have been consulted because of bradycardia. At the time of my evaluation this morning, patient has slightly slurred speech. The visual problem that he had has actually improved. The patient has sinus bradycardia on an EKG could be related to the recent stroke. Does not have any high-grade AV block. Does not have documented atrial fibrillation. PAST MEDICAL HISTORY: Significant for hypertension, dyslipidemia. MEDICATIONS: Current medications include Norvasc, Ambien, Zestril, Motrin, Lipitor and aspirin. ALLERGIES: THERE ARE ALLERGIES TO LIBRAX. FAMILY HISTORY: Family history is negative for premature coronary artery disease. SOCIAL HISTORY: Social history is negative for smoking, EtOH abuse or drug abuse. REVIEW OF SYSTEMS: HEENT is unremarkable. CARDIAC as described above. RESPIRATORY as described above. GI negative. GENITOURINARY negative. ALLERGY/IMMUNOLOGY: Negative. MUSCULOSKELETAL: Negative. SKIN negative. CONSTITUTIONAL: Negative. DERM: Negative. ONCOLOGICAL negative. 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 PHYSICAL EXAMINATION: On exam heart rate is 50 beats per minute. Blood pressure is 127/62, respiratory 16. There is no jugular venous distention. Carotid upstroke is normal. There is no bruit. Chest exam reveals good air entry bilaterally. Heart exam reveals first and second heart sounds. No gallop. No murmur. No rub. Abdomen is soft, nontender. Exam of extremities did not reveal any edema. Peripheral pulses are palpable. LABORATORY DATA: Labs show that the hemoglobin is 14.2, potassium is 4.7. Creatinine is 0.7. LDL cholesterol is 105. ASSESSMENT: 1. Cerebrovascular accident. 2. Sinus bradycardia. PLAN: I am going to obtain a 2D echo on him and we will treat the patient's dyslipidemia aggressively. I will perform a PHILLIP if the neurologist thinks it is necessary. The patient will need cardiac evaluations once the neurological symptoms improve. MMODL / IJN: [id number] /
== END 2019-06-16 17:41 | disposition short-term general hospital (02) | DRG 66 ==
LOC: EC 23:46 → 5NMEDONC 06-15 02:37 → 3SCARD 06-15 17:51 → OBSVTOIN 06-16 14:27
PROVIDERS: ADMIT Hospitalist; ATTEND Hospitalist
DX: I63.9 Cerebral infarction, unspecified (principal); R47.1 Dysarthria and anarthria; R29.810 Facial weakness; R40.2363 Coma scale, best motor response, obeys commands, at hospital admission; R40.2143 Coma scale, eyes open, spontaneous, at hospital admission; R40.2243 Coma scale, best verbal response, confused conversation, at hospital admission; I10 Essential (primary) hypertension; E78.5 Hyperlipidemia, unspecified; Z79.82 Long term (current) use of aspirin; Z79.899 Other long term (current) drug therapy; Z88.8 Allergy status to other drugs, medicaments and biological substances; R00.1 Bradycardia, unspecified
CPT/HCPCS: 36415; 70450; 70496; 70498; 70551; 71046; 80053; 80061; 81003; 82375; 82803; 84484; 85025; 85610; 85730; 93005; 96360; 99285

== ENCOUNTER 2019-12-08 10:59 | Emergency (ER) | payer MEDICARE ==
[2019-12-08 11:17] VITALS: TEMP 98.5
[2019-12-08] MEDS ORDERED: DIPH,PERTUS(ACELL)TETVAC-LF 0.5 ML VIAL IM ONE (12:19)
--- NOTE | 2019-12-08 12:51 | CT ---
EXAMINATION TYPE: CT brain wo con DATE OF EXAM: 12/08/2019 COMPARISON: Previous study dated 06/15/2019. HISTORY: Fall, wound just next to Rt orbit CT DLP: 1142.4 mGycm Automated exposure control for dose reduction was used. FINDINGS: There is evidence of an old left thalamic infarct. Central structures are midline. There is no evidence of hydrocephalus. No acute focal lesion, mass ef fect or midline shift is seen. I do not see evidence of intracranial blood. Visualized portions of the paranasal sinuses and mastoids are clear. The bony calvarium is intact. IMPRESSION: 1. NO ACUTE INTRACRANIAL ABNORMALITY. 2. OLD LEFT THALAMIC INFARCT.
--- NOTE | 2019-12-08 12:53 | XR ---
EXAMINATION TYPE: XR ankle complete RT , 3 VIEWS DATE OF EXAM ORDERED: 12/08/2019 HISTORY: pain. COMPARISON: None. FINDINGS: There is a mildly displaced, oblique fracture the distal diametaphysis of the right fibula . No definite associated tibial fracture is seen. There is a small Achilles spur present. IMPRESSION: MILDLY DISPLACED, OBLIQUE FRACTURE THROUGH THE DISTAL DIAMETAPHYSIS OF THE RIGHT FIBULA. CODE A: INITIAL ENCOUNTER FOR CLOSED FRACTURE.
--- NOTE | 2019-12-08 13:23 | ED ---
General Adult HPI <Michael Fleming - Last Filed: 12/08/19 13:26> - General Source: patient, RN notes reviewed, old records reviewed Mode of arrival: ambulatory Limitations: no limitations <Willie Patel - Last Filed: 12/08/19 14:05> - General Chief complaint: Fall Stated complaint: Fall Head Lac Rt foot Time Seen by Provider: 12/08/19 11:25 - History of Present Illness Initial comments: 74-year-old male patient presents to ED with chief complaint of chemical fall. Patient reports that he was walking when he tripped on a block to hold the car fell forward injuring his right ankle he did hit his head as well. A small laceration right temporal region. Denies any loss of consciousness use of blood thinners. Chief complaint is right ankle pain. Denies any other areas of pain or any other complaints. Systemic: Pt denies fatigue, fever/chills, rash. Pt denies weakness, night sweats, weight loss. Neuro: Pt denies headache, visual disturbances, syncope or pre-syncope. HEENT: Pt denies ocular discharge or irritation, otalgia, rhinorrhea, pharyngitis or notable lymphadenopathy. Cardiopulmonary: Pt denies chest pain, SOB, heart palpitations, dyspnea on exertion. Abdominal/GI: Pt denies abdominal pain, n/v/d. : Pt denies dysuria, burning w/ urination, frequency/urgency. Denies new onset urinary or bowel incontinence. MSK: Pt denies myalgia, loss of strength or function in extremities. Neuro: Pt denies new onset weakness, paresthesias. (Willie Patel) - Related Data Home Medications Medication Instructions Recorded Confirmed Aspirin 81 mg PO DAILY 01/29/16 06/15/19 amLODIPine [Norvasc] 5 mg PO HS 01/29/16 06/15/19 Lansoprazole 30 mg PO DAILY 06/15/19 06/15/19 Prednisolone Acetate/Pf 1 drop BOTH EYES COSTA 06/15/19 06/15/19 [Prednisolone Acet 1% Eye Drop] Zolpidem [Ambien] 5 mg PO HS PRN 06/15/19 06/15/19 lisinopriL [Zestril] 20 mg PO DAILY 06/15/19 06/15/19 Previous Rx's Medication Instructions Recorded Atorvastatin [Lipitor] 80 mg PO HS tab 06/16/19 Clopidogrel [Plavix] 75 mg PO DAILY tab 06/16/19 Enoxaparin [Lovenox] 40 mg SQ DAILY syringe 06/16/19 Allergies Allergy/AdvReac Type Severity Reaction Status Date / Time chlordiazepoxide Allergy Rash/Hives Verified 12/08/19 11:16 [From Librax (with clidinium)] clidinium bromide Allergy Rash/Hives Verified 12/08/19 11:16 [From Librax (with clidinium)] Review of Systems ROS Other: All systems not noted in ROS Statement are negative. <Michael Fleming - Last Filed: 12/08/19 13:26> ROS Other: All systems not noted in ROS Statement are negative. <Willie Patel - Last Filed: 12/08/19 14:05> ROS Statement: Those systems with pertinent positive or pertinent negative responses have been documented in the HPI. Past Medical History Past Medical History: CVA/TIA, Hyperlipidemia, Hypertension Additional Past Medical History / Comment(s): heart murmur History of Any Multi-Drug Resistant Organisms: None Reported Past Surgical History: No Surgical Hx Reported Additional Past Surgical History / Comment(s): eye implants Past Anesthesia/Blood Transfusion Reactions: No Reported Reaction Past Psychological History: No Psychological Hx Reported Smoking Status: Never smoker Past Alcohol Use History: Occasional Past Drug Use History: None Reported - Past Family History Mother Family Medical History: No Reported History <Willie Patel - Last Filed: 12/08/19 14:05> General Exam Limitations: no limitations <Willie Patel - Last Filed: 12/08/19 14:05> - General Exam Comments Initial Comments: Constitutional: NAD, AOX3, Pt has pleasant affect. HEENT: NC/AT, trachea midline, neck supple, no lymphadenopathy. External ears appear normal, without discharge. Mucous membranes moist. Eyes PERRLA, EOM intact. There is no scleral icterus. No pallor noted. Cardiopulmonary: RRR, no murmurs, rubs or gallops, no JVD noted. Lungs CTAB in anterior and posterior grissom. No peripheral edema. Abdominal exam: Abdomen soft and non-distended. Abdomen non-tender to palpation in all 4 quadrants. Bowel sounds active in LLQ. No hepatosplenomegaly. No ecchymosis Neuro: CN II-XII grossly intact. No nuchal rigidity. No raccon eyes, no thorne sign, no hemotympanum. No cervical spinal tenderness. MSK: No posterior calf tenderness bilaterally, homans sign negative bilaterally. Posterior tibialis and radial pulse +2 bilaterally. Sensation intact in upper and lower extremities. Right distal fibular region is tender to palpation. no skin changes. No proximal tib-fib tenderness. No other areas of tenderness in upper or lower extremities. Small 1cm superficial laceration right temporal region. Vigorously irrigated approximate one simple interrupted suture. (Willie Patel) Course <Michael Fleming - Last Filed: 12/08/19 13:26> Vital Signs 12/08/19 12/08/19 11:13 13:29 Temperature 98.5 F Pulse Rate 56 L 55 L Respiratory 20 18 Rate Blood Pressure 187/71 175/74 O2 Sat by Pulse 99 99 Oximetry - Reevaluation(s) Reevaluation #1: 12/08/19 13:27 PA supervision: I personally evaluate the patient [id number] he did fall and sustained a small facial laceration of the right for head/orbital area this was repaired by the physician seismic survey assistant he also had a distal fibular fracture. Pat ient does have B capillary refill and sensation he will go ahead responded as he was unable to keep the initial splint at 90 he will follow-up with orthopedics. I do agree with the assessment and plan. (Michael Fleming) Procedures - Laceration Laceration #1 Consent Obtained: verbal consent Indication: laceration Site: face (1cm right temporal region ) Size (cm): 1 Description: linear Depth: simple, single layer Pre-repair: wound explored, irrigated extensively Type of Sutures: nylon Size of Sutures: 5-0 Number of Sutures: 1 Technique: simple, interrupted Patient Tolerated Procedure: well, no complications - Orthopedic Splinting/Casting Injury #1 Side: right Lower Extremity Injury Location: ankle Lower Extremity Immobilizer: posterior splint <Willie Patel - Last Filed: 12/08/19 14:05> Medical Decision Making <Willie Patel - Last Filed: 12/08/19 14:05> - Medical Decision Making 74-year-old male patient NC chief complaint mechanical fall. Patient did hit his head. No loss of consciousness. He is denying any headache changes in vision or any other complaints. Physical exam displayed distal fibular tenderness. Small laceration which was repaired one simple interrupted suture. CT brain did not display any acute process. I feel ankle positive for distal fibular fracture. Patient placed in a long posterior ankle splint. Will be nonweightbearing follow-up with orthopedic consult tomorrow and will return to ER if condition worsens. Case discussed and pt seen by Dr. Fleming. (Willie Patel) Disposition <Michael Fleming - Last Filed: 12/08/19 13:26> Is patient prescribed a controlled substance at d/c from ED?: No <Willie Patel - Last Filed: 12/08/19 14:05> Clinical Impression: Fracture of distal fibula, Laceration, Fall Disposition: HOME SELF-CARE Condition: Stable Instructions (If sedation given, give patient instructions): Ankle Fracture (ED), Fall Prevention (ED) Additional Instructions: follow-up with orthopedist tomorrow. Do not bear weight on right lower extremity. Use crutches. Continue her splint. return for suture removal in 5 days. Return if any worsening symptoms. Please return for suture removal: Face: 5 days Please monitor for signs and symptoms of infection including: redness, warmth, drainage, discharge. Please return to ED if these signs or symptoms occur, new signs or symptoms develop or if condition worsens in anyway. Referrals: Trevon Chino MD [Primary Care Provider] - 1-2 days Anthony Dillard DO [Doctor of Osteopathic Medicine] - 1-2 days
[2019-12-08 13:30] VITALS: BP 175/74; PULSE 55; RESP 18
== END 2019-12-08 14:09 | disposition home or self-care (01) ==
LOC: EC 10:59
DX: S82.431A Displaced oblique fracture of shaft of right fibula, initial encounter for closed fracture (principal); S01.411A Laceration without foreign body of right cheek and temporomandibular area, initial encounter; E78.5 Hyperlipidemia, unspecified; I10 Essential (primary) hypertension; Z79.82 Long term (current) use of aspirin; Z79.899 Other long term (current) drug therapy; Z88.8 Allergy status to other drugs, medicaments and biological substances; Z23 Encounter for immunization; Z86.73 Personal history of transient ischemic attack (TIA), and cerebral infarction without residual deficits; W01.10XA Fall on same level from slipping, tripping and stumbling with subsequent striking against unspecified object, initial encounter; Y93.01 Activity, walking, marching and hiking
CPT/HCPCS: 12001; 29515; 70450; 90471; 90715; 99284